=== PATIENT | female | born 1970 | race Caucasian/White ===

== ENCOUNTER 2019-02-16 18:27 | Emergency (ER) | payer OTHER ==
[~2019-02-16] VITALS: Ht 160 cm; Wt 86.4 kg
[~2019-02-16 18:27] MED LIST: INSLAN SQ; MAGN27TA2 PO
[2019-02-16] MEDS ORDERED: KETO10TA2 PO (18:31)
[2019-02-16] MEDS ORDERED: GLIP5 PO (18:31)
[2019-02-16] MEDS ORDERED: IBUP-2070 PO (18:31)
[2019-02-16] MEDS ORDERED: DEXAMETHASONE SOD PHOS 4 MG/ML 5 ML VIAL IM ONE (20:30)
[2019-02-16] MEDS ORDERED: MAGOX PO (20:31)
[2019-02-16 21:59] VITALS: BP 130/83
== END 2019-02-16 22:12 | disposition home or self-care (01) ==
LOC: EMS 18:30
DX: M54.41 Lumbago with sciatica, right side (principal); E11.9 Type 2 diabetes mellitus without complications; E78.00 Pure hypercholesterolemia, unspecified; Z79.4 Long term (current) use of insulin
CPT/HCPCS: 82962; 96372; 99283; J1100